=== PATIENT | female | born 1980 | race Caucasian/White ===

== ENCOUNTER 2016-10-19 10:30 | Outpatient (CLI) | payer OTHER | END 2016-10-19 10:31 | disposition home or self-care (01) | DX: N92.1 Excessive and frequent menstruation with irregular cycle (principal); D50.9 Iron deficiency anemia, unspecified ==

== ENCOUNTER 2016-10-26 08:58 | Outpatient (CLI) | payer OTHER | END 2016-10-26 08:59 | disposition home or self-care (01) | DX: N92.0 Excessive and frequent menstruation with regular cycle (principal) ==

== ENCOUNTER 2017-01-06 08:59 | Day surgery (SDC) | payer OTHER ==
[2017-01-06] MEDS ORDERED: LACTATED RINGERS 1,000 ML IV ONE ×2 (10:21→13:38)
[2017-01-06] MEDS ORDERED: KETOROLAC 30 MG/ML VIAL IVP ONE (12:50)
[2017-01-06] MEDS ORDERED: LIDOCAINE-MPF 2% 5 ML VIAL IM ONE (12:50)
[2017-01-06] MEDS ORDERED: MIDAZOLAM 2 MG/2 ML VIAL IVP ONE (12:50)
[2017-01-06] MEDS ORDERED: fentaNYL 100 MCG/2 ML VIAL IVP ONE (12:50)
[2017-01-06] MEDS ORDERED: PROPOFOL 200 MG/20 ML VIAL IVP ONE (12:50)
[2017-01-06] MEDS ORDERED: ONDANSETRON 4 MG/2 ML VIAL IVP ONE (12:50)
[2017-01-06] MEDS ORDERED: DEXAMETHASONE 4 MG/ML VIAL IVP ONE (12:50)
[2017-01-06] MEDS: fentaNYL 100 MCG/2 ML VIAL ONE ×2 (13:37→13:49)
[2017-01-06] MEDS: HYDROcod/ACETAM 10 MG/325 MG TABLET ONE ×2 (14:37→14:40)
== END 2017-01-06 09:00 | disposition home or self-care (01) ==
PROC: 0U5B7ZZ Destruction of Endometrium, Via Natural or Artificial Opening (ICD-10-PCS; principal; 2017-01-06 10:30)
DX: N92.4 Excessive bleeding in the premenopausal period (principal); Z98.84 Bariatric surgery status; Z98.0 Intestinal bypass and anastomosis status; Z90.49 Acquired absence of other specified parts of digestive tract; Z80.3 Family history of malignant neoplasm of breast; Z80.41 Family history of malignant neoplasm of ovary; E66.9 Obesity, unspecified; Z68.41 Body mass index [BMI] 40.0-44.9, adult
CPT/HCPCS: 58353; 81025; A9270; J7120